=== PATIENT | female | born 1955 | race Caucasian/White ===

== ENCOUNTER → 2017-05-09 | Outpatient (CLI) | payer OTHER ==
--- NOTE | 2017-05-13 14:01 | RADIOLOGY REPORT PS360 ---
DIG MAMM-SCREEN MAGRARETTE W/CAD CAD Screening ORDERING PHYSICIAN : Allen Gottlieb MD PATIENT AGE: 61 years GENDER: Female COMPARISON: Previous mammograms: December 2015, September 2014, August 2013. INDICATION: Routine screening No hormones no new complaints. Noncontributory family history. Previous stereotactic biopsy left breast TECHNIQUE: Standard CC and MLO images were obtained. R2 CAD reviewed. FINDINGS: Moderate density breast bilaterally. Mild asymmetry. No prominent findings. Minor observations. Images were initially reviewed by Dr. Billingsley but now dictated by Dr. Martinez. RIGHT BREAST: Stable architecture. Stable benign calcifications. No new areas of concern on the right follow-up in one year adequate. LEFT BREAST: Small metallic marker from previous stereotactic biopsy at upper-outer quadrant left breast again noted. There is a small area of slightly more evident nodularity labeled X at the inferior breast MLO view.. Minimal calcifications here. Similar calcifications have been seen previously and these are most likely stable but. The nodularity was seen on previous cc views but slightly more evident on today's MLO. Would benefit from additional views to further survey and and ultrasound left breast. Although there may may be some shadowing from the calcifications here.. Very subtle nodularity superior left breast labeled Y I believe is stable & unchanged.. The above are minor observations but benefit from further evaluation to be cautious in. .. Also again note note there is some faint scattered calcifications throughout the upper-outer quadrant left breast. These are most compatible with benign adenosis type calcifications as seen previously./ IMPRESSION: Left breast.: Nonspecific minimal nodularity inferior left breast area X is very slightly more apparent on on today's MLO view. This may merely be due to projection, but would suggest spot views ( 90 degree, MLO & cc) left breast to further evaluate area X & Y.. Ultrasound suggested as well. Right breast. Stable no interval change follow-up in one year BI-RADS CATEGORY: 0_Incomplete: Need additional imaging. RECOMMENDED FOLLOWUP: ADD ADDITIONAL IMAGING (A letter has been sent to the patient regarding results of the study.)
== END ==
LOC: RAD 09:30
DX: Z12.31 Encounter for screening mammogram for malignant neoplasm of breast (principal)
CPT/HCPCS: G0202

== ENCOUNTER → 2017-05-12 | Outpatient (CLI) | payer OTHER ==
--- NOTE | 2017-05-12 19:58 | RADIOLOGY REPORT PS360 ---
CHEST(2 VIEWS-NOT PORTABLE) HISTORY: COUGH ORDERING PHYSICIAN: Haroon Shi MD PATIENT AGE: 61 years COMPARISON: 05/12/2009 FINDINGS: The cardiomediastinal silhouette and pulmonary vascularity are within normal limits. There is hyperinflation with hyperattenuation of the upper lobe pulmonary vessels consistent with obstructive chronic bronchitis. A calcified granulomas present in the left midlung.. No acute bony abnormalities. IMPRESSION: Negative chest, no acute finding
== END ==
LOC: RAD 17:23
DX: R05 Cough (principal)

== ENCOUNTER → 2017-05-19 | Outpatient (CLI) | payer OTHER ==
--- NOTE | 2017-05-19 21:49 | RADIOLOGY REPORT PS360 ---
, DIG MAMM-DX UNI A/VWS-LT W/CAD US BREAST-LT COMPLETE W/AXILLA Ordering Physician: Allen Gottlieb MD Patient Age: 61 years: Female HISTORY: EVAL BREAST FROM MAMM . Nodular densities left breast on recent screening mammogram. .Diagnostic mammogram and ultrasound performed to address areas of slightly more evident nodularity on recent May 09 screening mammogram ..2008 stereotactic biopsy of punctate calcifications upper-outer quadrant left breast. COMPARISON: Bilateral screening mammogram May 09, 2017 & December 2015 and September 2014. DIAGNOSTIC LEFT MAMMOGRAM WITH SPOT VIEWS. TECHNIQUE: Spot CC and MLO and 90 degree views along with a full 60 degree MLO view performed... CAD also performed Small area of nodularity noted on recent screening mammogram is again observed. This is vaguely present on on old studies but is slightly denser today more evident on recent screening mammogram. It is again Labeled x located at central left breast. It measures up to 7 MLO view. Minimal nodularity previously seen laterally appears stable since 2016. Height x just less than 6 mm AP Ultrasound will be performed to further evaluate. There is a 2 or 3 small dense calcifications here which can be followed. Nodularity elsewhere at the more superior left breast is less evident on today's study. . Minimal area of density questioned at the medial retroareolar region on recent study is less evident as well. Small metallic marker from previous biopsy upper-outer quadrant left breast again noted, . Scattered tiny calcifications throughout the superior and central breast are again observed. The scattered distribution & punctate character these calcifications supports benign character. Similar calcifications were previously biopsied. Upper-outer quadrant left breast ULTRASOUND LEFT BREAST with axillary survey Entire breast was evaluated with ultrasound with additional axillary survey performed Two small cyst or identified.: 3:00. Small 5.7 mm cyst central breast near nipple.. 7:00. Small 6.2mmX 4.5 mm cyst central breast near nipple. This most likely correspond well with the density seen on recent mammogram. No suspicious nodules. Axillary region. Benign-appearing lymph nodes. 1.5 cm benign nodes best delineated. A elongated 2.8 cm note deeper at the axilla noted. Normal cortex IMPRESSION: . 1. Benign cyst at central breast towards 6- 7 o'clock position seen on ultrasound and likely corresponds with a small more evident area of density noted recent mammogram views. It This can be followed 6 months to further confirm correlation .. 2. There is also a small benign cyst at 3:00 central breast noted on ultrasound today, with minor nodularity here on mammography.. 3. Numerous scattered tiny punctate benign-appearing calcifications are again noted-can be followed. 4. Other areas of minimal density recently noted are less evident on today's spot views left breast. 5. Left mammogram follow-up in 6 months suggested to confirm stability. BI-RADS CATEGORY: 3_Probably Benign-Short Term F/U RECOMMENDED FOLLOWUP: 6M 6MONTH FOLLOW-UP (A letter has been sent to the patient regarding results of the study.)
== END ==
LOC: RAD 15:15
DX: R92.8 Other abnormal and inconclusive findings on diagnostic imaging of breast (principal)
CPT/HCPCS: G0206-LT